=== PATIENT | male | born 1990 ===

== ENCOUNTER 2021-09-12 06:22 | Day surgery (SDC) | payer OTHER, SELFPAY ==
[2021-09-12] VITALS (14 sets, daily range): BP systolic 94–119; BP diastolic 58–83; PULSE 65–88; RESP 14–16; TEMP 36.1–36.9; O2SAT 95–100; BMI 26.8
[2021-09-12] MEDS: SODIUM CHLORIDE 0.9 % (FLUSH) 10 ML SYRINGE IVF (06:45)
[2021-09-12] MEDS: LACTATED RINGERS 1000 ML 1,000 ML 100 ML IV (06:45)
--- NOTE | 2021-09-12 08:19 | W.ANESCHARGE ---
Anesthesia Charges Start Date/Time Anesthesia Start Date: 09/12/21 Anesthesia Start Time: 07:40 Stop Date/Time Anesthesia Stop Date: 09/12/21 Anesthesia Stop Time: 08:14 Summary Emergency: No
--- NOTE | 2021-09-12 08:21 | PM.GSPRC ---
Operative Note Date of procedure: 09/12/21 Type of Procedure: 1. Exam under anesthesia. 2. Botox injection for acute anal fissure. Procedure Description: After discussing the risks and benefits of the procedure, the patient signed informed consent.? The patient was brought to the operating room. Spinal anesthesia was administered. Patient was then placed prone on the operating table.? Care was taken to pad the patient's pressure points.?? The patient was then given sedation by anesthesia.?? The operative site was then prepped and draped in the usual sterile fashion.? A time-out was then performed. I first started with exam under anesthesia. Perianal skin was examined and revealed moderately enlarged external hemorrhoidal tissue right laterally and left laterally. Digital rectal exam and anoscopy were also done and revealed moderately enlarged internal hemorrhoids right and left posterior laterally as well as anterior midline. 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 I was able to see the internal sphincter fibers at the base of the fissure. Anoderm adjacent to the fissure had bright bleeding that was controlled with cautery. Once hemostasis was achieved, I then used reconstituted Botulinum toxin A for treatment of anal fissure. 25 units ( 0.6 ml) were injected on each side of the anal fissure into the internal sphincter. Pressure was held for hemostasis. Local anesthetic was injected around the anus and for bilateral pudendal nerve block. ? Sterile dressings were Placed over the anus to catch any drainage. ? The patient was then woken and transported to the recovery area in stable condition. ? The patient tolerated the procedure well. Findings: Moderately enlarged external and internal hemorrhoidal tissue. Chronic anal fissure was visualized with bleeding noted from hemorrhoids adjacent to the fissure. Anesthesia: spinal (with MAC) Surgeon: Rylee Wasserman MD Estimated blood loss (mL): 2 Condition: stable Disposition: PACU
--- NOTE | 2021-09-12 09:49 | W.ANESCHARGE ---
Anesthesia Charges Start Date/Time Anesthesia Start Date: 09/12/21 Anesthesia Start Time: 07:40 Stop Date/Time Anesthesia Stop Date: 09/12/21 Anesthesia Stop Time: 08:14 Summary Emergency: No
--- NOTE | 2021-09-12 10:40 | SUR.PHASEII ---
PATIENT UP TO BATHROOM. ATTEMPTED TO URINATE.
--- NOTE | 2021-09-12 11:20 | SUR.PHASEII ---
PATIENT VOIDED POST-OP.
== END 2021-09-12 11:15 | disposition home or self-care (01) ==
PROVIDERS: PCP Physician Assistant Medical; Visit Provider Surgery
PROC: (CPT 64640; principal; 2021-09-12 07:30)
DX: K60.2 Anal fissure, unspecified (principal); K64.8 Other hemorrhoids; K64.4 Residual hemorrhoidal skin tags
CPT/HCPCS: 64640; 46600; 00902; J2250; J2405; J2704; J3010; J7120

== ENCOUNTER 2022-01-08 09:19 | Day surgery (SDC) | payer OTHER, SELFPAY ==
[2022-01-08] VITALS (12 sets, daily range): BP systolic 91–121; BP diastolic 54–88; PULSE 56–74; RESP 14–16; TEMP 36.1–36.7; O2SAT 96–100; BMI 25.1
[2022-01-08] MEDS: LACTATED RINGERS 1000 ML 1,000 ML 100 ML IV (09:30)
--- NOTE | 2022-01-08 11:47 | PM.GSPRC ---
Operative Note Date of procedure: 01/08/22 Type of Procedure: 1. Lateral internal sphincterotomy. Procedure Description: After discussing the risks and benefits of the procedure, the patient signed informed consent.? The operative site was marked and the patient was brought to the operating room. Spinal anesthesia was administered. Patient was then placed prone on the operating table. Care was taken to pad the patient's pressure points.?? The patient was then sedated by anesthesia.?? The operative site was then prepped and draped in the usual sterile fashion.? A time-out was then performed. Perianal skin wheal was examined and revealed redundant external hemorrhoidal tissue right and left posterior laterally. Digital rectal exam and anoscopy were also done and revealed an acute anal fissure slightly to the left posterior midline. The internal sphincter fibers were visualized at the bottom of the anal fissure. Minimally enlarged internal hemorrhoidal tissue was also noted. Anal mucosa the level of dentate line was then incised right laterally with cautery. With palpating the intersphincteric groove, the Barbara clamp was inserted into this mucosal opening and internal sphincter fibers were divided sequentially with cautery. This was done with frequent palpation of the external sphincter and intersphincteric groove. A release of internal sphincter fibers was palpated. The mucosal opening was then closed with a running 3-0 chromic suture. A mixture of Marcaine and Exparel was used for bilateral pudendal nerve block and around the anus. Hemostasis was achieved with direct pressure. ? Sterile gauze was applied over the anus. ? The patient was then woken and transported to the recovery area in stable condition. ? The patient tolerated the procedure well. Findings: recurrent acute anal fissure just to the left of posterior midline. Anesthesia: MAC and spinal Surgeon: Rylee Wasserman MD Estimated blood loss (mL): 2 Condition: stable Disposition: PACU
[2022-01-08] MEDS: BUPIVACAINE LIPOSOME 133 MG/10 ML INJ INFILTRATI (12:20)
[2022-01-08] MEDS: BUPIVACAINE 0.25% 30 ML INJECTION (12:20)
--- NOTE | 2022-01-08 12:51 | W.ANESCHARGE ---
Anesthesia Charges Start Date/Time Anesthesia Start Date: 01/08/22 Anesthesia Start Time: 12:00 Stop Date/Time Anesthesia Stop Date: 01/08/22 Anesthesia Stop Time: 12:51 Summary Emergency: No
== END 2022-01-08 14:39 | disposition home or self-care (01) ==
PROVIDERS: PCP Physician Assistant Medical; Visit Provider Surgery
PROC: (CPT 46080; principal; 2022-01-08 10:45)
DX: K60.0 Acute anal fissure (principal)
CPT/HCPCS: 46080; 00902; C9290; J1100; J1885; J2250; J2400; J2405; J2704; J3010; J3490; J7120